=== PATIENT | female | born 1945 ===

== ENCOUNTER 2022-06-02 15:31 | Emergency (ER) | payer MEDICARE, OTHER | END 2022-06-02 16:55 | disposition home or self-care (01) | LOC: LL.ED 15:31 | DX: H60.91 Unspecified otitis externa, right ear (principal); I25.10 Atherosclerotic heart disease of native coronary artery without angina pectoris; J44.9 Chronic obstructive pulmonary disease, unspecified; E11.9 Type 2 diabetes mellitus without complications; Z88.2 Allergy status to sulfonamides; Z79.899 Other long term (current) drug therapy; Z87.891 Personal history of nicotine dependence | CPT/HCPCS: 99282; 99283 ==